=== PATIENT | female | born 1960 | race African-American/Black ===

== ENCOUNTER 2016-09-12 10:50 | Emergency (ER) | payer OTHER ==
--- NOTE | ~2016-09-12 | CR72 ---
[facility] A Service of [facility] RADIOLOGY TEXT RESULTS PATIENT: WILLA DOLAN LOCATION: [facility] : 64 UNIT #: [id number] AGE: [address]: Magalis John MD SEX: F ORDER DR: [id number] [facility] [address] [place], [place] [address] [id number] E MR#: [id number] Acc #: [id number] NAME: WILLA DOLAN : 1960 SEX: F STUDY DATE/TIME: 09/12/2016 10:35 UNIT: [facility] ROOM: STUDY DESCRIPTION: CR Chest Single View Portable Attending Physician: Magalis John M.D. Ordering Physician: Magalis John M.D. Primary Care Physician: Julisa Tabor M.D. MEDICAL IMAGING REPORT This report is preliminary unless electronic signature is present EXAM Portable chest 09/12/2016 INDICATION Congestion, shortness of air for the last 2-3 days with some sinus pain. History of hypertension. FINDINGS AP portable chest is compared with 10/14/2007. Patient is rotated on the current study. Cardiac and mediastinal contours are normal. There is some left infrahilar atelectasis. Lung volumes are low. No pneumothorax. IMPRESSION Rotated low-volume exam. There is mild cardiomegaly and there is some linear atelectasis in the left infrahilar lung. Dictated by... Phil Mane Jr., M.D. THIS IS AN ELECTRONICALLY VERIFIED REPORT Phil Mane Jr., M.D. at 09/12/2016 2:58 PM CHAS/kathy TD: 09/12/2016 13:10 JOB #: [id number] MEDICAL IMAGING REPORT COPY
--- NOTE | ~2016-09-12 | NM69 ---
[facility] A Service of [facility] RADIOLOGY TEXT RESULTS PATIENT: WILLA DOLAN LOCATION: [facility] : 64 UNIT #: [id number] AGE: [address]: Magalis John MD SEX: F ORDER DR: [id number] [facility] [address] [place], [place] [address] [id number] E MR#: [id number] Acc #: [id number] NAME: WILLA DOLAN : 1960 SEX: F STUDY DATE/TIME: 09/12/2016 15:29 UNIT: [facility] ROOM: STUDY DESCRIPTION: NM Pulm Vent and Perf Attending Physician: Magalis John M.D. Ordering Physician: Magalis John M.D. Primary Care Physician: Julisa Tabor M.D. MEDICAL IMAGING REPORT This report is preliminary unless electronic signature is present EXAM VQ scan 09/12 INDICATIONS Cough, chest pain and upper back pain. Pain with breathing. Dizziness. Fatigue. Symptoms started 2 weeks ago. FINDINGS Ventilation images were obtained after the administration of 32.7 mCi of technetium 99m - DTPA aerosol. Corresponding perfusion images were obtained after the IV administration of 5.8 mCi of technetium 99m - MAA. Comparison made with chest x-ray from 09/12/2016 at 1035 hours. Ventilation perfusion tracer deposition in the lungs is fairly homogeneous. No VQ mismatches are seen, and there are no segmental perfusion defects. Study is very low probability for pulmonary embolism. IMPRESSION Very low probability for pulmonary embolism. Dictated by... Phil Mane Jr., M.D. THIS IS AN ELECTRONICALLY VERIFIED REPORT Phil Mane Jr., M.D. at 09/13/2016 8:09 AM CHAS/carlos TD: 09/12/2016 17:13 JOB #: [id number] MEDICAL IMAGING REPORT COPY
--- NOTE | ~2016-09-12 | EKG ---
PATIENT: WILLA DOLAN UNIT #: [id number] Ventricular Rate: 117 BPM Atrial Rate: 117 BPM P-R Interval: 154 ms QRS Duration: 88 ms Q-T Interval: 308 ms QTC Calculation(Bezet): 429 ms P Conifer: 14 degrees Calculated R Conifer: 11 degrees Calculated T Conifer: -8 degrees Diagnosis Line: Sinus tachycardia Diagnosis Line: T wave abnormality, consider inferior ischemia Diagnosis Line: Borderline ECG Diagnosis Line: No previous ECGs available Diagnosis Line: Confirmed by SHANELLE ARCEO MD ([id number]) on 09/13/2016 Diagnosis Line: 6:18:24 PM INTERPRETING MD: MARIELOS CUMMINS
[2016-09-12 10:46] LABS: BASOPHIL# 0.1 X10e3 (0-0.3); BASOPHIL% 0.7 % (0-2.5); EOSINOPHIL# 0.1 X10e3 (0-0.7); EOSINOPHIL% 0.6 % (0.0-7.0); HEMATOCRIT 39.8 % (35.0-45.0); HEMOGLOBIN 13.1 gm/dL (12.0-16.0); LYMPHOCYTE# 1.7 X10e3 (1.0-3.5); LYMPHOCYTE% 10.7 % (17.0-45.0); MEAN CELL VOLUME 89.6 FL (83-96); MEAN CORPUSCULAR HEMOGLOBIN 29.5 PG (28-34); MEAN CORPUSCULAR HGB CONC 32.9 g/dL (30-36); MEAN PLATELET VOLUME 8.5 FL (6.5-11.5); MONOCYTE# 1.5 X10e3 (0-1.0); MONOCYTE% 9.7 % (3.0-12.0); NEUTROPHIL# 12.4 X10e3 (1.5-7.1); NEUTROPHIL% 78.3 % (40-75); PLATELET COUNT 258 X10e3 (140-420); RED BLOOD COUNT 4.45 X10e (3.90-5.30); RED CELL DISTRIBUTION WIDTH 13.7 % (11.0-15.5); WHITE BLOOD COUNT 15.8 X10e3 (4.0-10.5)
[2016-09-12 10:47] LABS: DIFF IND YES
[~2016-09-12 10:50] MED LIST: ALBUTEROL17 GM NEB; DOXYCYCLINE PO; IPRATROPIUM0.2 MG/ML NEB; LISINOPRIL PO; LORTAB 7.5-5001 TAB PO; MUCINEX DM1 TAB.SR . PO; NEXIUM PO; OXAPROZIN600 MG PO; PREDNISONE PO; SYMBICORT INH; TOPROL XL PO; TYLENOL ARTHRITIS PO; VITAMIN A AND D PO; WALGREENS PHARMACY
[2016-09-12 10:54] LABS: PROTHROMBIN TIME (PATIENT) 10.3 SECONDS (9.6-11.5)
[2016-09-12 11:10] LABS: PLATELET ESTIMATE NORMAL (NORMAL); RBC NORMAL YES
[2016-09-12 11:17] LABS: ALBUMIN SERUM 3.6 g/dL (3.5-5.0); ALKALINE PHOSPHATASE 76 U/L (32-92); ALT (SGPT) 25 U/L (10-40); AST (SGOT) 23 U/L (10-42); BILIRUBIN, DIRECT 0.2 mg/dL (0.0-0.2); BILIRUBIN,INDIRECT 0.7 mg/dL (0.0-0.9); BILIRUBIN,TOTAL 0.9 mg/dL (0.2-2.0); BLOOD UREA NITROGEN 11 mg/dL (9-23); CALCIUM SERUM 8.6 mg/dL (8.4-10.2); CARBON DIOXIDE 24 mmol/L (22-31); CHLORIDE 94 mmol/L (100-111); GLOM FILT RATE Estimated ABOVE60 mL/min (>60); GLUCOSE FASTING 393 mg/dL (70-110); POTASSIUM 4.1 mmol/L (3.5-5.1); PROTEIN TOTAL SERUM 8.2 g/dL (6.0-8.3); SODIUM 128 mmol/L (135-145)
[2016-09-12 12:02] LABS: INFLUENZA A NEG (NEG); INFLUENZA B NEG (NEG)
== END 2016-09-12 17:39 | disposition home or self-care (01) ==
LOC: CED 10:50
PROVIDERS: Emergency Medicine
DX: J11.1 Influenza due to unidentified influenza virus with other respiratory manifestations (principal); I10 Essential (primary) hypertension; Z91.041 Radiographic dye allergy status; Z88.1 Allergy status to other antibiotic agents; Z88.8 Allergy status to other drugs, medicaments and biological substances
CPT/HCPCS: 36415; 71010; 78582; 80048; 80076; 82947; 83880; 85025; 85379; 85610; 87804; 93005; 94640; 96361; 96374; 99284; A9540; A9567; J2405